=== PATIENT | female | born 1995 | race Caucasian/White ===

== ENCOUNTER 2017-11-20 00:06 | Emergency (ER) | payer OTHER ==
[~2017-11-20] VITALS: Ht 162.6 cm; Wt 127.0 kg
[~2017-11-20 00:06] MED LIST: AMOXICILLIN875 MG PO; BACTRIM DS TAB1 EACH PO; FLOVENT HFA 1110 MCG IH; IBUPROFEN 200200 M1 PO; IBUPROFEN 800800 M1 PO; IBUPROFEN 800800 MG PO; LEVOTHYROXIN0.112 M1; MEDROLDOSEPACK PO; NOHOMEMEDICATIONS; NORCO 5-325 TA1 EAC1 PO; NORCO 5-325 TA1 EACH PO; ROBITUSSIN DM118 ML PO; SYNTHROID75 MCG; VALIUM5 MG PO; VENTOLIN HFA INH8 GM IH; VITAMIN D 5050000 I1; ZOFRAN ODT4 MG PO; ZPAK PO
[2017-11-20] MEDS ORDERED: SYNTHROID25 MCG (00:23)
[2017-11-20 00:37] LABS: URINE BILIRUBIN NEGATIVE (Negative); URINE BLOOD TRACE (Negative); URINE CLARITY CLEAR; URINE COLOR STRAW; URINE GLUCOSE-RANDOM NEGATIVE (Negative); URINE KETONES NEGATIVE (Negative); URINE LEUKOCYTES-REFLEX NEGATIVE (Negative); URINE NITRITE-REFLEX NEGATIVE (Negative); URINE PROTEIN NEGATIVE (Negative); URINE SPECIFIC GRAVITY <= 1.005 (1.005-1.030); URINE UROBILINOGEN 0.2 E.U./dl (0.2-1.0)
[2017-11-20] MEDS ORDERED: ZOFRAN ODT4 MG PO (01:23)
[2017-11-20 01:35] VITALS: BP 155/85
== END 2017-11-20 01:35 | disposition home or self-care (01) ==
LOC: M.ERS 00:06
PROVIDERS: Emergency Medicine
DX: O23.591 Infection of other part of genital tract in pregnancy, first trimester (principal); E03.9 Hypothyroidism, unspecified; F17.210 Nicotine dependence, cigarettes, uncomplicated; Z3A.01 Less than 8 weeks gestation of pregnancy

== ENCOUNTER 2021-10-05 14:25 | Emergency (ER) | payer OTHER ==
[~2021-10-05] VITALS: Ht 162.6 cm; Wt 136.1 kg
[~2021-10-05 14:25] MED LIST changes: +SYNTHROID25 MCG
[2021-10-05 15:25] LABS: INFLUENZA A ANTIGEN Positive (Negative); INFLUENZA B ANTIGEN Negative (Negative)
[2021-10-05] MEDS ORDERED: TAMIFLU75 MG PO (15:33)
[2021-10-05 15:45] VITALS: BP 135/89
== END 2021-10-05 15:46 | disposition home or self-care (01) ==
LOC: M.ERS 14:25
PROVIDERS: Emergency Medicine Emergency Medical Services
DX: J09.X2 Influenza due to identified novel influenza A virus with other respiratory manifestations (principal); Z20.822 Contact with and (suspected) exposure to COVID-19; E03.9 Hypothyroidism, unspecified; F17.210 Nicotine dependence, cigarettes, uncomplicated